=== PATIENT | male | born 1960 | race Two or more races ===

== ENCOUNTER 2025-02-03 09:47 | Day surgery (SDC) | payer OTHER ==
[2025-02-03] MEDS ORDERED: DIPHENHYDRAMINE HCL 50 MG/ML VIAL 1ML IV ONE (12:45)
[2025-02-03] MEDS ORDERED: fentaNYL CITRATE 50 MCG/ML AMPUL IV ONE (12:45)
[2025-02-03] MEDS ORDERED: MIDAZOLAM HCL 2 MG/2 ML VIAL IV ONE (12:45)
== END 2025-02-03 14:50 | disposition home or self-care (01) ==
LOC: AMB-ENDOS 09:47
PROVIDERS: ATTEND Surgery
DX: K62.5 Hemorrhage of anus and rectum (principal); K63.5 Polyp of colon; K59.00 Constipation, unspecified; K21.9 Gastro-esophageal reflux disease without esophagitis; K29.00 Acute gastritis without bleeding